=== PATIENT | male | born 1955 | race Caucasian/White ===

== ENCOUNTER → 2016-08-12 | Outpatient (CLI) | payer BC ==
[2016-08-12 10:54] LABS: BASOPHILS % (AUTO) 1 % (0-2); EOSINOPHILS # (AUTO) 0.1 10^3uL; EOSINOPHILS % (AUTO) 1 % (0-4); LYMPHOCYTES # (AUTO) 2.1 X10^3; MEAN CORPUSCULAR HGB CONC 34.7 g/dL (31.0-37.0); MEAN CORPUSCULAR VOLUME 97 FL (80-100); MEAN PLATELET VOLUME 10.8 FL (6.0-9.5); MONOCYTES # (AUTO) 0.9 X10^3; MONOCYTES % (AUTO) 10 % (3-11); NEUTROPHILS # (AUTO) 5.4 X10^3; NEUTROPHILS % (AUTO) 63 % (51-67); PLATELET COUNT 168 10^3uL (150-450); WHITE BLOOD COUNT 8.55 10^3uL (4.0-11.0)
[2016-08-12 10:56] LABS: MEAN CORPUSCULAR HEMOGLOBIN 33.5 PG (26.0-34.0)
[2016-08-12 11:39] LABS: ALBUMIN 4.3 g/dL (3.4-5.0); ALKALINE PHOSPHATASE 80 U/L (38-126); ANION GAP 16.7 MEQ/L (3-15); BUN/CREATININE RATIO 17 (10-20); CALCULATED IONIZED CALCIUM 4.3 mg/dL (3.8-4.6); TOTAL PROTEIN 7.7 g/dL (6.4-8.5)
== END ==
LOC: LAB 10:34
PROVIDERS: ATTEND Family Medicine
DX: Z00.00 Encounter for general adult medical examination without abnormal findings (principal); Z12.5 Encounter for screening for malignant neoplasm of prostate; K14.4 Atrophy of tongue papillae
CPT/HCPCS: 36415; 80053; 80061; 82607; 82746; 83036; 83540; 84153; 84252; 84436; 84443; 84591; 85025; 86140

== ENCOUNTER → 2016-11-13 | Outpatient (CLI) | payer BC ==
[2016-11-13 11:30] LABS: ALBUMIN 4.6 g/dL (3.4-5.0); TOTAL PROTEIN 8.6 g/dL (6.4-8.5)
--- NOTE | 2016-11-13 13:21 | Diagnostic Imaging Report ---
INDICATION: Tobacco abuse. PA and lateral chest. FINDINGS: Heart size and pulmonary vascularity are normal. Lungs are clear. There are no effusions or pneumothoraces. IMPRESSION: No acute abnormalities in the chest. No change compared to prior exam dated 01/29/2011. Dictated by: Dictated on workstation # [id number]
== END ==
LOC: LAB 10:57
PROVIDERS: ATTEND Family Medicine
DX: Z00.00 Encounter for general adult medical examination without abnormal findings (principal)
CPT/HCPCS: 36415; 71020; 80076; 86803; 93005